=== PATIENT | female | born 1995 | race Two or more races ===

== ENCOUNTER 2018-09-10 17:49 | Emergency (ER) | payer SELFPAY ==
[~2018-09-10] VITALS: Ht 170.2 cm; Wt 83.0 kg
[2018-09-10 17:57] VITALS: Ht 170.2 cm; Wt 83.0 kg
[2018-09-10 21:30] VITALS: BP 130/68
== END 2018-09-10 21:30 | disposition home or self-care (01) ==
LOC: ED 17:49
DX: R10.30 Lower abdominal pain, unspecified (principal); Z87.442 Personal history of urinary calculi
CPT/HCPCS: Q0092